=== PATIENT | male | born 1995 | race Caucasian/White ===

== ENCOUNTER → 2016-09-04 | Outpatient (CLI) | payer BC ==
--- NOTE | 2016-09-04 14:02 | Diagnostic Imaging Report ---
Scrotal ultrasound. INDICATION: Left scrotal pain. FINDINGS: The right testicle is 4.6 x 2.5 x 3.2 cm. The left testicle is 4 x 2.5 x 3 cm. The testicular echotexture is normal on both sides. No hernia is identified. There is venous and arterial waveform seen in both testicles. No mass is seen. No significant hydrocele. No hernia is identified. IMPRESSION: Unremarkable exam. Dictated by: Dictated on workstation # [id number]
== END ==
LOC: RAD 13:10
PROVIDERS: ATTEND Nurse Practitioner Family
DX: K40.90 Unilateral inguinal hernia, without obstruction or gangrene, not specified as recurrent (principal)
CPT/HCPCS: 76870